=== PATIENT | male | born 1940 | race Caucasian/White ===

== ENCOUNTER → 2018-01-11 | Day surgery (SDC) | payer OTHER, MEDICARE ==
[~2018-01-11] MED LIST: PROPOFOL 20 ML ONE
[2018-01-11 11:10] VITALS: TEMP 97.6; BMI 27.4
[2018-01-11 12:03] VITALS: BP 112/60; PULSE 58
--- NOTE | 2018-01-13 12:05 | PATH ---
Surgical Pathology Report Patient Name: COCO NOVAK [facility]. Rec. #: [id number] /Age/Gender: 1940 (Age: 77) / M Account: [id number] Location: [facility]-ENDOSCOPY Taken: 01/11/2018 Received: 01/11/2018 Reported: 01/13/2018 Physicians: Arelis Dickinson M.D. Specimen(s) Received A: BX ANTRUM B: BX GE JUNCTION Clinical History Dyspepsia Rule out reflux Final Diagnosis A. STOMACH, ANTRUM, BIOPSY: GASTRIC ANTRAL MUCOSA WITH MILD CHRONIC GASTRITIS. IMMUNOHISTOCHEMICAL STAIN FOR H. PYLORI IS NEGATIVE. B. GASTROESOPHAGEAL (GE) JUNCTION, BIOPSY: GASTRIC CARDIAC TYPE MUCOSA WITH MILD CHRONIC GASTRITIS. NO INTESTINAL METAPLASIA, DYSPLASIA, OR SQUAMOUS MUCOSA IDENTIFIED. Electronically Signed Arelis Ferreira M.D. Gross Description A. Received in formalin, labeled "BX antrum" is a lin, irregular portion of soft tissue measuring 0.2 cm. in greatest dimension. The specimen is submitted in toto in one cassette. B. Received in formalin, labeled "BX GE junction" is a lin, irregular portion of soft tissue measuring 0.2 cm. in greatest dimension. The specimen is submitted in toto in one cassette. CAIN/01/12/2018 dmitry/01/12/2018
== END | disposition home or self-care (01) ==
LOC: FASU-ENDO 10:33
PROVIDERS: ATTEND Internal Medicine Gastroenterology
PROC: 0DB68ZX Excision of Stomach, Via Natural or Artificial Opening Endoscopic, Diagnostic (ICD-10-PCS; 2018-01-11)
PROC: 0DB58ZX Excision of Esophagus, Via Natural or Artificial Opening Endoscopic, Diagnostic (ICD-10-PCS; principal; 2018-01-11 11:45)
DX: K29.50 Unspecified chronic gastritis without bleeding (principal); R13.10 Dysphagia, unspecified
CPT/HCPCS: 88305-TC; 88342-TC

== ENCOUNTER 2019-04-09 01:03 | Emergency (ER) | payer OTHER, MEDICARE ==
[2019-04-09 01:21] VITALS: BP 155/71; PULSE 66; TEMP 97.7; BMI 28.5
--- NOTE | 2019-04-09 04:09 | PDOC ---
History of Present Illness - General Chief Complaint: Pain Stated Complaint: ABD PAIN Time Seen by Provider: 04/09/19 03:58 History Source: Patient Exam Limitations: No Limitations - History of Present Illness Initial Comments: 04/09/19 04:00 78YOM with h/o ruptured intestine with resection and colostomy followed by colostomy reversal, hernia repair x3, chronic back pain s/p multiple surgeries w / Dr. Sahni, HTN, and HLD, who p/w abdominal pain and one episode NBNB vomiting this afternoon. He describes about 6 hours of umbilical pain late this afternoon /evening accompanied by abdominal swelling in the same area. He had one episode of brown vomit this evening after he drank similarly-colored tea. His last BM was yesterday morning and was normal. He denies any f/c, burning on urination, testicular pain/swelling, or other symptoms. Past History - Past Medical History Allergies/Adverse Reactions: Allergies Allergy/AdvReac Type Severity Reaction Status Date / Time oxycodone AdvReac Severe Nausea Verified 04/09/19 01:20 Home Medications: Ambulatory Orders Amiloride HCl [Midamor] 10 mg PO DAILY 07/15/12 Ascorbic Acid [Vitamin C Oral Solution -] 500 mg PO DAILY 07/15/12 Atorvastatin Ca [Lipitor] 10 mg PO DAILY 07/15/12 Cholecalciferol (Vitamin D3) [Vitamin D3] 2,000 unit PO DAILY 07/15/12 Zolpidem Tartrate [Ambien] 10 mg PO HS 07/15/12 hydrALAZINE HCL [Apresoline] 50 mg PO TID 07/15/12 Brimonidine Tartrate/Timolol [Combigan 0.2%-0.5% Eye Drops] 1 drop OS BID Doxazosin Mesylate [Cardura -] 2 mg PO BID 12/30/14 Allopurinol [Zyloprim -] 100 mg PO DAILY 02/16/16 Pantoprazole Sodium [Protonix] 40 mg PO DAILY 02/16/16 Nebivolol [Bystolic -] 30 mg PO HS 03/01/16 Aspirin [ASA -] 81 mg PO DAILY #0 tab.chew 05/24/16 Olmesartan/Hydrochlorothiazide [Benicar Hct 40-25 mg Tablet] 1 each PO DAILY 06/01 Anemia: No Asthma: No Cancer: No Cardiac Disorders: No CVA: No COPD: No CHF: No Dementia: No Diabetes: No GI Disorders: Yes (DIVERTICLOSIS;ULCERS;GASTROPATHY;HEMORROIDS;H/H;GRADE I VARICES) Disorders: No HTN: Yes Hypercholesterolemia: Yes Liver Disease: No Seizures: No Thyroid Disease: No - Surgical History Abdominal Surgery: Yes Appendectomy: No Cardiac Surgery: No Cholecystectomy: No Lung Surgery: No Neurologic Surgery: Yes (HERNIATED L4-5, SPINAL COLUMN STENOSIS) Orthopedic Surgery: Yes (ARTHROSCOPIC SURGERY;BACK/NECK SURGERY) - Suicide/Smoking/Psychosocial Hx Smoking Status: No Smoking History: Never smoked Have you smoked in the past 12 months: No Number of Cigarettes Smoked Daily: 0 If you are a former smoker, when did you quit?: 1980 Hx Alcohol Use: Yes ([facility]) Drug/Substance Use Hx: No Substance Use Type: None Hx Substance Use Treatment: No Review of Systems - Review of Systems Able to Perform ROS?: Yes Comments:: 04/09/19 04:53 GEN: no fever, chills, malaise, generalized weakness, or weight change HEENT: no ear pain, sore throat, vision change, or eye pain CV: no chest pain, palpitations, lightheadedness, syncope, or edema RESP: no cough, wheezing, or SOB GI: abdominal pain, nausea, vomiting, no diarrhea, constipation, or white/black/ bloody stool : no dysuria, hematuria, incontinence, retention, bleeding, or discharge MSK: no neck/back pain, muscle weakness/pain, or joint swelling/pain NEURO: no headache, seizure, vertigo, numbness, tingling, or focal weakness PSYCH: no substance use, no behavior change SKIN: no jaundice, no rash ROS otherwise negative except as noted in HPI *Physical Exam - Vital Signs Last Vital Signs Temp Pulse Resp BP Pulse Ox 97.7 F 66 18 155/71 98 04/09/19 01:17 04/09/19 01:17 04/09/19 01:17 04/09/19 01:17 04/09/19 01:17 - Physical Exam Comments: 04/09/19 04:56 GENERAL: very pleasant older adult male, nontoxic and well-appearing, A/Ox4, no distress, answers questions appropriately, accompanied by to appears supportive HEENT: PERRLA, EOMI, moist mucous membranes NECK/BACK: no midline ttp, no spinal stepoff or deformity, no hematoma, full ROM , neck supple CARDIOVASCULAR: regular rate/rhythm, normal S1S2, no MGR, strong peripheral pulses, capillary refill <2 seconds, extremities wwp, no edema LUNGS/RESPIRATORY: no respiratory distress, CTAB GI/ABDOMEN: multiple scars from prior surgeries, symmetric [id number], normoactive BS, soft, no ttp, no midline pulsatile masses : no CVA tenderness EXTREMITIES: no muscle atrophy, no acute deformity SKIN: warm and dry, no pallor, no jaundice, no rash, no bruising, no skin breakdown, no cuts, no lesions NEUROLOGICAL: GCS 15, CN II-XII grossly intact, 5/5 strength proximally and distally, no facial droop ED Treatment Course - LABORATORY CBC & Chemistry Diagram: 04/09/19 04:30 04/09/19 04:30 Medical Decision Making - Medical Decision Making 04/09/19 04:58 78YOM with multiple prior abdominal surgeries p/w Initial Vital Signs Temp Pulse Resp BP Pulse Ox 97.7 F 66 18 155/71 98 04/09/19 01:17 04/09/19 01:17 04/09/19 01:17 04/09/19 01:17 04/09/19 01:17 Exam: As noted in Physical Exam section. DDX IBNLT: most likely gastroenteritis given time course with picnic food and spontaneous resolution, also considered on ddx are AAA, renal colic, PUD, SBO, sigmoid volvulus, splenomegaly (2/2 mets, myeloplastic syndrome, or lymphoproliferative d/o MC in elderly being CML or NHL), etc. W/U ordered: labs as noted below TX ordered: None at this time. EKG: Reviewed; results as noted in ECG Review section. Laboratory Tests 04/09/19 04/09/19 04/09/19 04:30 04:30 04:30 WBC 12.1 H RBC 3.82 L Hgb 12.1 Hct 35.4 MCV 92.6 MCH 31.6 MCHC 34.1 RDW 12.7 Plt Count 242 MPV 8.9 Absolute Neuts (auto) 10.0 H Neutrophils % 82.9 H D Lymphocytes % 11.7 D Monocytes % 4.0 Eosinophils % 1.1 Basophils % 0.3 Nucleated RBC % 0 Sodium 134 L Potassium 3.8 Chloride 100 Carbon Dioxide 26 Anion Gap 9 BUN 22.0 H Creatinine 1.2 Est GFR (CKD-EPI)AfAm 67.67 Est GFR (CKD-EPI)NonAf 58.39 Random Glucose 108 H Lactic Acid 1.0 Calcium 8.5 Total Bilirubin 0.5 AST 18 ALT 20 Alkaline Phosphatase 93 Troponin I Total Protein 7.2 Albumin 3.6 Lipase 171 Urine Color Urine Appearance Urine pH Ur Specific [place] Urine Protein Urine Glucose (UA) Urine Ketones Urine Blood Urine Nitrite Urine Bilirubin Urine Urobilinogen Ur Leukocyte Esterase 04/09/19 04/09/19 04/09/19 04:30 04:30 04:45 WBC RBC Hgb Hct MCV MCH MCHC RDW Plt Count MPV Absolute Neuts (auto) Neutrophils % Lymphocytes % Monocytes % Eosinophils % Basophils % Nucleated RBC % Sodium Potassium Chloride Carbon Dioxide Anion Gap BUN Creatinine Est GFR (CKD-EPI)AfAm Est GFR (CKD-EPI)NonAf Random Glucose Lactic Acid Calcium Total Bilirubin AST ALT Alkaline Phosphatase Troponin I 0.03 Total Protein Albumin Lipase Cancelled Urine Color Yellow Urine Appearance Clear Urine pH 6.0 Ur Specific [place] 1.012 Urine Protein Negative Urine Glucose (UA) Negative Urine Ketones Negative Urine Blood Negative Urine Nitrite Negative Urine Bilirubin Negative Urine Urobilinogen 0.2 Ur Leukocyte Esterase Negative Reassessment: Patient states he continues to be pain-free. Repeat abdominal exam continues to be benign. No midline pulsatile mass, no nausea or vomiting in the ED. 04/09/19 05:56 This patient has gotten significant relief of symptoms while in the ED. Workup is not concerning for emergency-level pathology at this time. This patient is appropriate for discharge with close outpatient follow up. They are comfortable with this plan and will follow up with their primary care provider in 1-3 days. Specific return precautions are discussed and they will come back to the ER if necessary. *DC/Admit/Observation/Transfer Diagnosis at time of Disposition: Vomiting Qualifiers: Vomiting type: unspecified Vomiting Intractability: non-intractable Nausea presence: with nausea Qualified Code(s): R11.2 - Nausea with vomiting, unspecified Abdominal pain Qualifiers: Abdominal location: periumbilical Qualified Code(s): R10.33 - Periumbilical pain - Discharge Dispostion Disposition: HOME Condition at time of disposition: Stable Decision to Admit order: No - Referrals Referrals: Isma Puckett MD [Primary Care Provider] - - Patient Instructions Printed Discharge Instructions: DI for Abdominal Pain-Adult Additional Instructions: You were seen in the ER for abdominal pain. We did an exam and labs, and there were no concerning findings. Your white blood cell count was slightly elevated, and many things could have caused this including the pain and the vomiting. After our assessment, we do not believe you are having a medical emergency at this time, and we believe you are safe to go home. Please follow up with your regular PCP in 1-3 days. Call their clinic this morning, tell them you were seen in the ER, and tell them you need a follow-up ARIELLE. If you have any new or worsening symptoms, please come back to the ER at any time (24 hours a day). Especially come back if you have recurrent abdominal pain, abdominal distention , more episodes of vomiting, fever, inability to have a bowel movement or pass gas, chest pain, shortness of breath, or any other new emergency symptoms. If you are having severe or life threatening symptoms, or symptoms that make it unsafe to drive or have someone drive you, please call 911. - Post Discharge Activity
[2019-04-09 04:52] LABS: BASO % 0.3 % (0-2.0); EOS % 1.1 % (0-4.5); HEMATOCRIT 35.4 % (35.4-49); HEMOGLOBIN 12.1 GM/dL (11.7-16.9); LYMPH % 11.7 % (8-40); MCH 31.6 pg (25.7-33.7); MCHC 34.1 g/dl (32.0-35.9); MEAN CELL VOLUME 92.6 fl (80-96); MEAN PLT VOLUME 8.9 fl (7.5-11.1); NEUT % 82.9 % (42.8-82.8); PLATELET COUNT 242 K/MM3 (134-434); RBC 3.82 M/mm3 (4.00-5.60); RDW 12.7 % (11.9-15.9); WHITE BLOOD COUNT 12.1 K/mm3 (4.0-10.0)
--- NOTE | 2019-04-09 04:54 | PDOC ---
Attending Attestation - Resident Resident Name: Aide Guy - ED Attending Attestation I have performed the following: I have examined & evaluated the patient, The case was reviewed & discussed with the resident, I agree w/resident's findings & plan - HPI HPI: 04/09/19 06:06 Pt comes with abd pain after a picnic. Probably food poisoning. He has extensive abdominal surgical hx. We need to consider whether pt has SBO due to adhesions. However, pt states that he feels vastly impoved after coming to the ER. - Physicial Exam PE: 04/09/19 06:20 Agree with resident exam - Medical Decision Making 04/09/19 06:21 Pt will be sent home, as he feels well and labs are normal.
[2019-04-09 05:12] LABS: URINE APPEARANCE CLEAR; URINE BILIRUBIN NEGATIVE (NEGATIVE); URINE COLOR YELLOW; URINE GLUCOSE (UA) NEGATIVE (NEGATIVE); URINE KETONE NEGATIVE (NEGATIVE); URINE LEUK ESTERASE NEGATIVE (NEGATIVE); URINE NITRITE NEGATIVE (NEGATIVE); URINE PROTEIN NEGATIVE (NEGATIVE); URINE UROBILINOGEN 0.2 mg/dL (0.2-1.0)
[2019-04-09 05:25] LABS: ALBUMIN 3.6 g/dl (3.4-5.0); BILIRUBIN,TOTAL 0.5 mg/dL (0.2-1); CALCIUM 8.5 mg/dL (8.5-10.1); CREATININE 1.2 mg/dL (0.55-1.3); POTASSIUM 3.8 mmol/L (3.5-5.1); TOT PROT 7.2 g/dl (6.4-8.2)
== END 2019-04-09 06:00 | disposition home or self-care (01) ==
LOC: JER 01:03
DX: R10.9 Unspecified abdominal pain (principal); R11.2 Nausea with vomiting, unspecified; I10 Essential (primary) hypertension; E78.00 Pure hypercholesterolemia, unspecified; Z87.19 Personal history of other diseases of the digestive system
CPT/HCPCS: 80053; 81003; 83605; 83690; 84484; 85025; 87086; 99282-25

== ENCOUNTER 2019-04-11 21:08 | Emergency (ER) | payer OTHER, MEDICARE ==
[2019-04-11 21:13] VITALS: BMI 28.5
--- NOTE | 2019-04-11 21:13 | PDOC ---
Rapid Medical Evaluation Time Seen by Provider: 04/11/19 21:09 Medical Evaluation: Allergies Allergy/AdvReac Type Severity Reaction Status Date / Time oxycodone AdvReac Severe Nausea Verified 04/09/19 01:20 04/11/19 21:10 HPI: Abdominal pain 4 days history of colectomy PE: L sided UQ and LQ tenderness CT ORDERS: Belly labs Discharge Disposition - Diagnosis Abdominal pain - Referrals - Patient Instructions - Post Discharge Activity
[2019-04-11] MEDS ORDERED: SODIUM CHLORIDE 1,000 ML IV STA (22:39)
[2019-04-11] MEDS ORDERED: ACETAMINOPHEN 1000 MG/100 ML VIAL (NON FORMULARY) IVPB ONE (22:39)
--- NOTE | 2019-04-11 22:40 | PDOC ---
History of Present Illness - General Chief Complaint: Pain Stated Complaint: ABD PAIN Time Seen by Provider: 04/11/19 21:09 History Source: Patient Exam Limitations: No Limitations - History of Present Illness Initial Comments: Isma Altman is a 78 yo gentleman with a hx of a ruptured intestine with resection and colostomy followed by colostomy reversal, hernia repair x3, chronic back pain s/p multiple surgeries w/ Dr. Sahni, HTN, and HLD, who presents to the [facility] ER via private auto for generalized abdominal pain. He states he was seen here in the same ER for similar abdominal pain this past tuesday, had some labs performed and then got sent home for PCP follow up. The patient states he has a sharp and burning pain in the lower left side of his abdomen which has been present, constant and nagging for the past 4 days. The patient denies any recent nausea, vomiting, diarrhea or constipation. His last bowel movement was this morning and it was normal without any diarrhea or constipation. The patient has an implanted device in his back for chronic pain. He states no pills work for him to relieve his chronic pain. PCP: Isma Puckett GI: Dr. Dickinson PSH: Colectomy, hernia repair, multiple back surgeries Social Hx: Drinks relationally, denies smoking or other substance usage. Allergies: Oxycodone Past History - Past Medical History Allergies/Adverse Reactions: Allergies Allergy/AdvReac Type Severity Reaction Status Date / Time oxycodone AdvReac Severe Nausea Verified 04/11/19 21:13 Home Medications: Ambulatory Orders Amiloride HCl [Midamor] 10 mg PO DAILY 07/15/12 Ascorbic Acid [Vitamin C Oral Solution -] 500 mg PO DAILY 07/15/12 Atorvastatin Ca [Lipitor] 10 mg PO DAILY 07/15/12 Cholecalciferol (Vitamin D3) [Vitamin D3] 2,000 unit PO DAILY 07/15/12 Zolpidem Tartrate [Ambien] 10 mg PO HS 07/15/12 hydrALAZINE HCL [Apresoline] 50 mg PO TID 07/15/12 Brimonidine Tartrate/Timolol [Combigan 0.2%-0.5% Eye Drops] 1 drop OS BID Doxazosin Mesylate [Cardura -] 2 mg PO BID 12/30/14 Allopurinol [Zyloprim -] 100 mg PO DAILY 02/16/16 Nebivolol [Bystolic -] 30 mg PO HS 03/01/16 Aspirin [ASA -] 81 mg PO DAILY #0 tab.chew 05/24/16 Olmesartan/Hydrochlorothiazide [Benicar Hct 40-25 mg Tablet] 1 each PO DAILY 06/01 Dorzolamide HCl/Timolol Maleat [Cosopt Eye Drops] 0 ml OP BID 04/11/19 Omeprazole 20 mg PO DAILY 04/11/19 Anemia: No Asthma: No Cancer: No Cardiac Disorders: No CVA: No COPD: No CHF: No Dementia: No Diabetes: No GI Disorders: Yes (DIVERTICLOSIS;ULCERS;GASTROPATHY;HEMORROIDS;H/H;GRADE I VARICES) Disorders: No HTN: Yes Hypercholesterolemia: Yes Liver Disease: No Seizures: No Thyroid Disease: No - Surgical History Abdominal Surgery: Yes (COLON RESECTION-RUPTURED LARGE INTESTINE) Appendectomy: No Cardiac Surgery: No Cholecystectomy: No Lung Surgery: No Neurologic Surgery: Yes (HERNIATED L4-5, SPINAL COLUMN STENOSIS) Orthopedic Surgery: Yes (ARTHROSCOPIC SURGERY;BACK/NECK SURGERY) - Suicide/Smoking/Psychosocial Hx Smoking Status: No Smoking History: Never smoked Have you smoked in the past 12 months: No Number of Cigarettes Smoked Daily: 0 If you are a former smoker, when did you quit?: 1980 Hx Alcohol Use: Yes ([facility]) Drug/Substance Use Hx: No Substance Use Type: None Hx Substance Use Treatment: No Review of Systems - Review of Systems Able to Perform ROS?: Yes Comments:: CONSTITUTIONAL: Absent: fever, no chills, no fatigue EYES: Absent: visual changes ENT: Absent: ear pain, no sore throat CARDIOVASCULAR: Absent: chest pain, no palpitations RESPIRATORY: Absent: cough, no SOB GI: Present: Abdominal pain Absent: no nausea, no vomiting, no constipation, no diarrhea GENITOURINARY: Absent: dysuria, no frequency, no hematuria MUSKULOSKELETAL: Present: Back pain Absent: no arthralgia, no myalgia SKIN: Absent: rash NEURO: Absent: headache *Physical Exam - Vital Signs Last Vital Signs Temp Pulse Resp BP Pulse Ox 97.7 F 73 18 126/69 97 04/11/19 21:09 04/11/19 21:09 04/11/19 21:04/11/19 21:04/11/19 21:09 - Physical Exam Comments: GENERAL: Well-appearing, well-nourished. No apparent distress. HEENT: Normocephalic, atraumatic. PERRL, EOM intact. CARDIOVASCULAR: Normal S1, S2. Regular rate and rhythm. PULMONARY: No evidence of respiratory distress. Lungs clear to auscultation bilaterally. No wheezing, rales or rhonchi. ABDOMEN: There is mild LLQ TTP. The abdomen is still soft with normal bowel sounds and is not distended. No rebound or guarding. No organomegaly. EXTREMITIES: Normal ROM in all four extremities. No gross deformities. SKIN: Warm, dry. No rash NEUROLOGICAL: No focal neurological deficits. ED Treatment Course - LABORATORY CBC & Chemistry Diagram: 04/11/19 23:00 04/11/19 23:00 Medical Decision Making - Medical Decision Making Isma Altman is a 78 yo gentleman with a hx of a ruptured intestine with resection and colostomy followed by colostomy reversal, hernia repair x3, chronic back pain s/p multiple surgeries w/ Dr. Sahni, HTN, and HLD, who presents to the [facility] ER via private auto for generalized abdominal pain. He states he was seen here in the same ER for similar abdominal pain this past tuesday, had some labs performed and then got sent home for PCP follow up. The patient states he has a sharp and burning pain in the lower left side of his abdomen which has been present, constant and nagging for the past 4 days. The patient denies any recent nausea, vomiting, diarrhea or constipation. His last bowel movement was this morning and it was normal without any diarrhea or constipation. The patient has an implanted device in his back for chronic pain. He states no pills work for him to relieve his chronic pain. Vital Signs Temp Pulse Resp BP Pulse Ox 97.7 F 73 18 126/69 97 04/11/19 21:04/11/19 21:04/11/19 21:04/11/19 21:04/11/19 21:09 DDx IBNLT: diverticulitis, colitis, renal colic, uti/pylo, electrolyte/ metabolic disturbance Plan: Labs, urine, EKG, CTAP, analgesia, re-assess. CTAP: IMPRESSION: Inflamed loop of lower abdominal small bowel could be due to infection, Crohn's disease or bowel ischemia , without secondary complication. Moderate-sized hiatal hernia. Mild prostate enlargement. Trace bilateral pleural effusions. 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 Patient looks very well and is non-toxic appearing. He was seen for this pain 2 days prior and he states it is better today then it was then. Patient requests to be discharged and states he has an appointment with his GI doctor - Dr. Dickinson on tuesday and another appointment with his PCP - dr. Puckett on Tuesday. Will DC patient with GI and PCP fu. *DC/Admit/Observation/Transfer Diagnosis at time of Disposition: Abdominal pain - Discharge Dispostion Disposition: HOME Condition at time of disposition: Improved Decision to Admit order: No - Referrals Referrals: Isma Puckett MD [Primary Care Provider] - Arelis Dickinson DO [Staff Physician] - - Patient Instructions Printed Discharge Instructions: DI for Abdominal Pain-Adult Additional Instructions: You came into the Er with abdominal pain. We did a cat scan which showed you have not ruptured your intestine. 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 Come back to the ER immediately if your pain worsens or you have any other new or worsening concerns. thank you for coming to the [facility] ER. We hope you feel better soon! Print Language: NIUEAN - Post Discharge Activity
[2019-04-11] MEDS ORDERED: ACETAMINOPHEN INJECTION 100 ML IVPB ONE (22:44)
[2019-04-11 23:14] LABS: BASO % 0.5 % (0-2.0); EOS % 3.6 % (0-4.5); HEMATOCRIT 34.2 % (35.4-49); HEMOGLOBIN 11.6 GM/dL (11.7-16.9); LYMPH % 23.7 % (8-40); MCH 31.5 pg (25.7-33.7); MCHC 33.9 g/dl (32.0-35.9); MEAN CELL VOLUME 92.8 fl (80-96); MEAN PLT VOLUME 8.3 fl (7.5-11.1); MONO % 8.3 % (3.8-10.2); NEUT % 63.9 % (42.8-82.8); PLATELET COUNT 251 K/MM3 (134-434); RBC 3.69 M/mm3 (4.00-5.60); RDW 12.7 % (11.9-15.9); WHITE BLOOD COUNT 9.4 K/mm3 (4.0-10.0)
[2019-04-11 23:20] LABS: URINE APPEARANCE CLEAR; URINE BILIRUBIN NEGATIVE (NEGATIVE); URINE COLOR YELLOW; URINE GLUCOSE (UA) NEGATIVE (NEGATIVE); URINE KETONE NEGATIVE (NEGATIVE); URINE LEUK ESTERASE NEGATIVE (NEGATIVE); URINE NITRITE NEGATIVE (NEGATIVE); URINE PROTEIN NEGATIVE (NEGATIVE); URINE UROBILINOGEN 0.2 mg/dL (0.2-1.0)
[2019-04-11 23:31] LABS: INR 1.08 (0.83-1.09); PROTHROMBIN TIME (PATIENT) 12.8 SEC (9.7-13.0)
[2019-04-11 23:41] LABS: ALBUMIN 3.4 g/dl (3.4-5.0); BILIRUBIN,TOTAL 0.5 mg/dL (0.2-1); BLOOD UREA NITROGEN 26.1 mg/dL (7-18); CALCIUM 8.6 mg/dL (8.5-10.1); CREATININE 1.5 mg/dL (0.55-1.3); POTASSIUM 3.6 mmol/L (3.5-5.1); TOT PROT 6.7 g/dl (6.4-8.2)
[2019-04-12 00:09] LABS: PHOSPHOROUS 3.9 mg/dL (2.5-4.9)
--- NOTE | 2019-04-12 01:47 | PDOC ---
Documentation entered by Chuy Arce SCRIBE, acting as scribe for Kati Villanueva DO. Kati Villanueva DO: This documentation has been prepared by the keke, Chuy Arce SCRIBE, under my direction and personally reviewed by me in its entirety. I confirm that the documentation accurately reflects all work, treatment, procedures, and medical decision making performed by me. Attending Attestation - Resident Resident Name: Sergio Bojorquez - ED Attending Attestation I have performed the following: I have examined & evaluated the patient, The case was reviewed & discussed with the resident, I agree w/resident's findings & plan - HPI HPI: 04/11/19 23:23 The patient is a 78 year old male, with a significant PMH of HTN, HLD, ruptured intestine with resection and colostomy, hernia repair x3, and chronic back pain (s/p multiple surgeries) who presents to the emergency department with 4 days of generalized abdominal pain. The patient was seen here at [facility] 2 days ago for similar symptoms, labs were normal so the patient was discharged. The patient states his pain is constant, sharp and has not subsided which prompted his arrival to the ED today. The patient states he endorsed one episode of NBNB vomiting and his last normal bowel movement was this morning. The patient denies history of kidney stones, chest pain, shortness of breath, headache and dizziness. Denies fever, chills, nausea, diarrhea and constipation. Denies dysuria, frequency, urgency and hematuria. Allergies: oxycodone Past surgical history: Colectomy, hernia repair, spinal column stenosis, arthroscopic surgery Social history: occasional alcohol use. PCP: Isma Martinez - Physicial Exam PE: 04/11/19 23:24 Agree with resident exam. - Medical Decision Making 04/12/19 01:45 78-year-old male with left-sided abdominal pain for several days CT scan of the abdomen and pelvis shows inflamed loop of small bowel possibly due to infection versus inflammatory bowel disease Bowel ischemia less likely as patient is non-ill appearing no elevated white blood cell count, no fever and a normal lactic acid level Patient already has an appointment with his Neurologist and Primary Care Physician When She Has Agreed to Follow-Up with Patient Advised to Return Should His Condition Worsen in Any Way Such
[2019-04-12 02:22] VITALS: BP 140/71; PULSE 53; TEMP 97.4
--- NOTE | 2019-04-12 13:38 | EKG ---
Test Reason : Blood Pressure : / mmHG Vent. Rate : 054 BPM Atrial Rate : 054 BPM P-R Int : 234 ms QRS Dur : 116 ms QT Int : 512 ms P-R-T Axes : 007 -17 -04 degrees QTc Int : 485 ms POOR DATA QUALITY, INTERPRETATION MAY BE ADVERSELY AFFECTED SINUS BRADYCARDIA WITH 1ST DEGREE A-V BLOCK SEPTAL INFARCT , AGE UNDETERMINED ABNORMAL ECG WHEN COMPARED WITH ECG OF 31-DEC-2014 05:28, SEPTAL INFARCT IS NOW PRESENT Confirmed by GABRIEL YARBROUGH MD ([id number]) on 04/12/2019 1:38:13 PM Referred By: Confirmed By:GABRIEL YARBROUGH MD
== END 2019-04-12 02:23 | disposition home or self-care (01) ==
LOC: JER 21:08
PROC: 3E033NZ Introduction of Analgesics, Hypnotics, Sedatives into Peripheral Vein, Percutaneous Approach (ICD-10-PCS; principal; 2019-04-11)
DX: R10.9 Unspecified abdominal pain (principal); I10 Essential (primary) hypertension; E78.5 Hyperlipidemia, unspecified; K44.9 Diaphragmatic hernia without obstruction or gangrene; N40.0 Benign prostatic hyperplasia without lower urinary tract symptoms; Z87.19 Personal history of other diseases of the digestive system; Z90.49 Acquired absence of other specified parts of digestive tract; Z96.89 Presence of other specified functional implants
CPT/HCPCS: 36415; 74177-TC; 80053; 81003; 82550; 83605; 83690; 83735; 84100; 84484; 85025; 85610; 86850; 86900; 86901; 93005; 93010; 99284-25; J0131; J7030

== ENCOUNTER 2019-09-19 09:10 | Day surgery (SDC) | payer OTHER, MEDICARE ==
[2019-09-11 17:14] VITALS: BMI 27.8
[2019-09-19] MEDS ORDERED: PROPOFOL 20 ML ONE ×2 (09:23)
[2019-09-19 09:50] VITALS: TEMP 97.5
[2019-09-19 11:16] VITALS: BP 105/76; PULSE 61
--- NOTE | 2019-09-21 15:44 | PATH ---
Surgical Pathology Report Patient Name: COCO NOVAK [facility]. Rec. #: [id number] /Age/Gender: 1940 (Age: 79) / M Account: [id number] Location: [facility] Taken: 09/19/2019 Received: 09/19/2019 Reported: 09/21/2019 Physicians: Arelis Dickinson M.D. Specimen(s) Received A: RANDOM SMALL BOWEL B: POLYP DESCENDING COLON Clinical History Surveillance colonoscopy Postoperative diagnosis: Diverticulosis, colon polyps, hemorrhoids, post surgical anatomy Final Diagnosis A. SMALL BOWEL, RANDOM, BIOPSY: COLONIC MUCOSA WITHOUT SIGNIFICANT PATHOLOGIC FINDINGS. NO SMALL BOWEL MUCOSA IDENTIFIED. B. DESCENDING COLON, POLYP, BIOPSY: TUBULAR ADENOMA. Electronically Signed Arelis Ferreira M.D. Gross Description A. Received in formalin, labeled "biopsy random small bowel" is a lin, irregular portion of soft tissue measuring 0.6 cm. in greatest dimension. The specimen is submitted in toto in one cassette. B. Received in formalin, labeled "biopsy polyp descending colon" is a lin, irregular portion of soft tissue measuring 0.6 cm. in greatest dimension. The specimen is submitted in toto in one cassette. 09/20/2019 saudi09/20/2019
== END 2019-09-19 11:15 | disposition home or self-care (01) ==
LOC: FASU-ENDO 09:10
PROVIDERS: ATTEND Internal Medicine Gastroenterology
PROC: 0DBM8ZX Excision of Descending Colon, Via Natural or Artificial Opening Endoscopic, Diagnostic (ICD-10-PCS; 2019-09-19)
PROC: 0DJD8ZZ Inspection of Lower Intestinal Tract, Via Natural or Artificial Opening Endoscopic (ICD-10-PCS; principal; 2019-09-19 10:30)
DX: Z12.11 Encounter for screening for malignant neoplasm of colon (principal); Z86.010 Personal history of colon polyps; K57.30 Diverticulosis of large intestine without perforation or abscess without bleeding; D12.4 Benign neoplasm of descending colon; K64.2 Third degree hemorrhoids; K64.8 Other hemorrhoids
CPT/HCPCS: 88305-TC

== ENCOUNTER 2021-04-17 05:09 | Day surgery (SDC) | payer OTHER, MEDICARE ==
[2021-04-15 13:35] VITALS: BMI 27.0
[2021-04-17] MEDS ORDERED: BUPIVACAINE HCL/PF 0.75% 10 ML VIAL ONE ×2 (07:27→10:28)
[2021-04-17] MEDS ORDERED: LIDOCAINE HCL 1% PRESERVATIVE FREE - 30ML VIAL IJ ONE ×2 (10:56)
[2021-04-17] MEDS ORDERED: IOHEXOL 180 MG/1 ML ML IJ ONE ×3 (10:57→11:01)
[2021-04-17] MEDS ORDERED: BUPIVACAINE HCL/PF 0.75% 10 ML VIAL NR ONE (10:58)
[2021-04-17 11:26] VITALS: TEMP 97.8
[2021-04-17 12:14] VITALS: BP 150/80; PULSE 60
== END 2021-04-17 12:10 | disposition home or self-care (01) ==
LOC: JASU-SURG 05:09
PROVIDERS: ATTEND Pain Medicine Pain Medicine
PROC: 3E0T33Z Introduction of Anti-inflammatory into Peripheral Nerves and Plexi, Percutaneous Approach (ICD-10-PCS; 2021-04-17)
PROC: 3E0T3BZ Introduction of Anesthetic Agent into Peripheral Nerves and Plexi, Percutaneous Approach (ICD-10-PCS; principal; 2021-04-17 10:30)
DX: M47.816 Spondylosis without myelopathy or radiculopathy, lumbar region (principal)
CPT/HCPCS: 76000-TC-FY

== ENCOUNTER 2022-03-06 03:35 | Inpatient (IN) | payer OTHER, MEDICARE ==
[2022-03-06] MEDS ORDERED: LACTATED RINGERS SOLUTION 1000 ML INFUS.BAG IV ONE (04:30)
[2022-03-06] MEDS ORDERED: ACETAMINOPHEN 1000 MG/100 ML BAG IVPB ONE (04:30)
[2022-03-06] MEDS ORDERED: ACETAMINOPHEN INJECTION 100 ML IVPB ONE (04:51)
[2022-03-06 05:30] LABS: BASO % 0.6 % (0-2.0); EOS % 0.6 % (0-4.5); HEMATOCRIT 34.1 % (35.4-49); HEMOGLOBIN 11.2 GM/dL (11.7-16.9); LYMPH % 9.3 % (8-40); MCH 30.9 pg (25.7-33.7); MEAN CELL VOLUME 93.8 fl (80-96); MONO % 2.7 % (3.8-10.2); NEUT % 86.8 % (42.8-82.8); PLATELET COUNT 202 10^3/uL (134-434); RBC 3.63 M/mm3 (4.00-5.60); RDW 13.2 % (11.9-15.9); WHITE BLOOD COUNT 12.1 K/mm3 (4.0-10.0)
[2022-03-06 05:49] LABS: CALCIUM 8.8 mg/dL (8.5-10.1)
[2022-03-06 05:50] LABS: ALBUMIN 3.7 g/dl (3.4-5.0); BLOOD UREA NITROGEN 24.6 mg/dL (7-18)
[2022-03-06 05:52] LABS: CREATININE 1.2 mg/dL (0.55-1.3)
[2022-03-06 05:54] LABS: BILIRUBIN,TOTAL 0.6 mg/dL (0.2-1); TOT PROT 7.3 g/dl (6.4-8.2)
[2022-03-06] MEDS ORDERED: ONDANSETRON 4 MG/2 ML VIAL IVPUSH ONE (07:57)
[2022-03-06] MEDS ORDERED: ONDANSETRON 4 MG/2 ML VIAL ONE (08:05)
[2022-03-06 09:05] LABS: MAGNESIUM 2.1 mg/dL (1.8-2.4)
[2022-03-06 12:42] VITALS: BMI 26.7
[2022-03-06] MEDS ORDERED: ACETAMINOPHEN 1000 MG/100 ML BAG IVPB PRN (14:51)
[2022-03-06] MEDS: ONDANSETRON 4 MG/2 ML VIAL IVPUSH PRN (15:29)
[2022-03-06] MEDS: DEXTROSE 5%-0.45% SALINE 1,000 ML IV SCH (15:39)
[2022-03-06] MEDS: PANTOPRAZOLE SODIUM 40 MG VIAL IVPUSH SCH (15:39)
[2022-03-06 17:50] LABS: BASO % 0.2 % (0-2.0); HEMOGLOBIN 10.4 GM/dL (11.7-16.9); LYMPH % 6.8 % (8-40); MCH 31.1 pg (25.7-33.7); MCHC 33.5 g/dl (32.0-35.9); MEAN CELL VOLUME 92.7 fl (80-96); MEAN PLT VOLUME 9.9 fl (7.5-11.1); MONO % 5.1 % (3.8-10.2); NEUT % 87.9 % (42.8-82.8); PLATELET COUNT 193 10^3/uL (134-434); RBC 3.35 M/mm3 (4.00-5.60); RDW 13.2 % (11.9-15.9); WHITE BLOOD COUNT 11.8 K/mm3 (4.0-10.0)
[2022-03-06] MEDS ORDERED: LOSARTAN POTASSIUM 50 MG TABLET PO SCH (22:00)
[2022-03-06] MEDS ORDERED: hydrALAZINE HCL 50 MG TABLET (FP) PO SCH ×2 (22:00)
[2022-03-06] MEDS ORDERED: ISOSORBIDE MONONITRATE 30 MG TAB.SR.24H (FP) PO SCH (22:00)
[2022-03-06] MEDS ORDERED: NEBIVOLOL 10 MG TABLET (FP) PO SCH (22:00)
[2022-03-06] MEDS ORDERED: PATIENT'S OWN MEDICATION (NON-FORMULARY) (Dorzolamide Hcl/Timolol Maleat [Cosopt Eye Drops OP SCH (22:00)
[2022-03-06] MEDS ORDERED: PIPERACILLIN/TAZOBACTAM 3.375 GM VIAL IVPB ONE (22:41)
[2022-03-06] MEDS ORDERED: DEXTROSE 5%-WATER - 50 ML IVPB ONE (22:41)
[2022-03-06] MEDS: DOXAZOSIN MESYLATE 4 MG TABLET PO SCH (23:18)
[2022-03-06] MEDS: PIPERACILLIN/TAZOB 3.375 GM 3.375 GM in DEXTROSE 5%-WATER - 50 ML IVPB SCH (23:18)
[2022-03-06] MEDS: TIMOLOL 0.5% OPHTHALMIC SOL 5 ML BOTTLE OS SCH (23:19)
[2022-03-06] MEDS: DORZOLAMIDE 2% HCL OPHTHALMIC SOLUTION 10 ML BOTTLE OS SCH (23:19)
[2022-03-07] MEDS ORDERED: PIPERACILLIN/TAZOBACTAM 3.375 GM VIAL IVPB ONE ×3 (01:32→16:38)
[2022-03-07] MEDS ORDERED: DEXTROSE 5%-WATER - 50 ML IVPB ONE ×3 (01:32→16:39)
[2022-03-07] MEDS: PIPERACILLIN/TAZOB 3.375 GM 3.375 GM in DEXTROSE 5%-WATER - 50 ML IVPB SCH ×3 (01:56→17:05)
[2022-03-07] MEDS: DEXTROSE 5%-0.45% SALINE 1,000 ML IV SCH ×3 (06:04→18:19)
[2022-03-07 08:28] LABS: PH,URINE 5.5 (5.0-8.0); URINE APPEARANCE CLEAR; URINE BILIRUBIN NEGATIVE (NEGATIVE); URINE COLOR YELLOW; URINE GLUCOSE (UA) NEGATIVE (NEGATIVE); URINE KETONE NEGATIVE (NEGATIVE); URINE LEUK ESTERASE NEGATIVE (NEGATIVE); URINE NITRITE NEGATIVE (NEGATIVE); URINE PROTEIN TRACE (NEGATIVE); URINE UROBILINOGEN 0.2 mg/dL (0.2-1.0)
[2022-03-07 08:56] LABS: BASO % 0.1 % (0-2.0); HEMATOCRIT 32.3 % (35.4-49); HEMOGLOBIN 10.6 GM/dL (11.7-16.9); LYMPH % 4.7 % (8-40); MCH 30.9 pg (25.7-33.7); MCHC 32.9 g/dl (32.0-35.9); MEAN CELL VOLUME 93.8 fl (80-96); MEAN PLT VOLUME 10.6 fl (7.5-11.1); MONO % 6.9 % (3.8-10.2); NEUT % 88.3 % (42.8-82.8); PLATELET COUNT 191 10^3/uL (134-434); RBC 3.45 M/mm3 (4.00-5.60); RDW 13.4 % (11.9-15.9); WHITE BLOOD COUNT 15.2 K/mm3 (4.0-10.0)
[2022-03-07 09:21] LABS: CALCIUM 8.7 mg/dL (8.5-10.1)
[2022-03-07 09:22] LABS: BLOOD UREA NITROGEN 29.6 mg/dL (7-18)
[2022-03-07 09:25] LABS: CREATININE 1.2 mg/dL (0.55-1.3)
[2022-03-07 09:27] LABS: TOT PROT 5.8 g/dl (6.4-8.2)
[2022-03-07 09:34] LABS: ALBUMIN 2.9 g/dl (3.4-5.0)
[2022-03-07] MEDS ORDERED: FUROSEMIDE 40 MG TABLET (FP) PO SCH (10:00)
[2022-03-07] MEDS: PANTOPRAZOLE SODIUM 40 MG VIAL IVPUSH SCH (10:05)
[2022-03-07] MEDS: ALLOPURINOL 100 MG TABLET (FP) PO SCH (10:06)
[2022-03-07] MEDS: TIMOLOL 0.5% OPHTHALMIC SOL 5 ML BOTTLE OS SCH ×2 (10:10→22:39)
[2022-03-07] MEDS: DORZOLAMIDE 2% HCL OPHTHALMIC SOLUTION 10 ML BOTTLE OS SCH ×2 (10:10→22:39)
[2022-03-07 13:56] LABS: BASO % 0.1 % (0-2.0); EOS % 0.1 % (0-4.5); HEMATOCRIT 32.9 % (35.4-49); LYMPH % 4.2 % (8-40); MCH 31.1 pg (25.7-33.7); MCHC 33.3 g/dl (32.0-35.9); MEAN CELL VOLUME 93.3 fl (80-96); MEAN PLT VOLUME 9.9 fl (7.5-11.1); MONO % 7.5 % (3.8-10.2); NEUT % 88.1 % (42.8-82.8); PLATELET COUNT 189 10^3/uL (134-434); RBC 3.52 M/mm3 (4.00-5.60); RDW 13.2 % (11.9-15.9); WHITE BLOOD COUNT 15.9 K/mm3 (4.0-10.0)
[2022-03-07 14:19] LABS: LACTIC ACID 2.2 mmol/L (0.4-2.0)
[2022-03-07] MEDS: DOXAZOSIN MESYLATE 4 MG TABLET PO SCH (22:39)
[2022-03-07] MEDS: ATORVASTATIN CA 10 MG TABLET (FP) PO SCH (22:39)
[2022-03-08] MEDS ORDERED: DEXTROSE 5%-WATER - 50 ML IVPB ONE ×3 (01:03→18:52)
[2022-03-08] MEDS ORDERED: PIPERACILLIN/TAZOBACTAM 3.375 GM VIAL IVPB ONE ×3 (01:03→18:52)
[2022-03-08] MEDS: PIPERACILLIN/TAZOB 3.375 GM 3.375 GM in DEXTROSE 5%-WATER - 50 ML IVPB SCH ×3 (01:34→18:54)
[2022-03-08] MEDS: DEXTROSE 5%-0.45% SALINE 1,000 ML IV SCH ×4 (02:42→22:12)
[2022-03-08 09:29] LABS: BASO % 0.3 % (0-2.0); EOS % 0.2 % (0-4.5); HEMOGLOBIN 10.5 GM/dL (11.7-16.9); MCH 31.7 pg (25.7-33.7); MEAN PLT VOLUME 9.8 fl (7.5-11.1); MONO % 8.2 % (3.8-10.2); NEUT % 85.3 % (42.8-82.8); PLATELET COUNT 167 10^3/uL (134-434); RBC 3.33 M/mm3 (4.00-5.60); RDW 13.2 % (11.9-15.9); WHITE BLOOD COUNT 14.6 K/mm3 (4.0-10.0)
[2022-03-08 09:31] LABS: INR 1.15 (0.83-1.09); PROTHROMBIN TIME (PATIENT) 13.3 SEC (9.7-13.0)
[2022-03-08 10:11] LABS: ALBUMIN 2.7 g/dl (3.4-5.0)
[2022-03-08 10:12] LABS: TOT PROT 5.6 g/dl (6.4-8.2)
[2022-03-08 10:13] LABS: BLOOD UREA NITROGEN 23.6 mg/dL (7-18); CALCIUM 8.3 mg/dL (8.5-10.1)
[2022-03-08 10:14] LABS: BILIRUBIN,TOTAL 0.9 mg/dL (0.2-1)
[2022-03-08 10:22] LABS: CREATININE 1.1 mg/dL (0.55-1.3)
[2022-03-08] MEDS: ALLOPURINOL 100 MG TABLET (FP) PO SCH (10:53)
[2022-03-08] MEDS: TIMOLOL 0.5% OPHTHALMIC SOL 5 ML BOTTLE OS SCH ×2 (10:55→21:32)
[2022-03-08] MEDS: PANTOPRAZOLE SODIUM 40 MG VIAL IVPUSH SCH (10:55)
[2022-03-08] MEDS: DORZOLAMIDE 2% HCL OPHTHALMIC SOLUTION 10 ML BOTTLE OS SCH ×2 (10:56→21:31)
[2022-03-08] MEDS ORDERED: ACETAMINOPHEN 1000 MG/100 ML BAG IVPB PRN (14:59)
[2022-03-08] MEDS: ATORVASTATIN CA 10 MG TABLET (FP) PO SCH (21:25)
[2022-03-08] MEDS: DOXAZOSIN MESYLATE 4 MG TABLET PO SCH (21:25)
[2022-03-08] MEDS: ONDANSETRON 4 MG/2 ML VIAL IVPUSH PRN (22:10)
[2022-03-09] MEDS ORDERED: DEXTROSE 5%-WATER - 50 ML IVPB ONE ×3 (01:07→19:57)
[2022-03-09] MEDS ORDERED: PIPERACILLIN/TAZOBACTAM 3.375 GM VIAL IVPB ONE ×3 (01:07→19:57)
[2022-03-09] MEDS: PIPERACILLIN/TAZOB 3.375 GM 3.375 GM in DEXTROSE 5%-WATER - 50 ML IVPB SCH ×3 (01:32→20:07)
[2022-03-09] MEDS: DEXTROSE 5%-0.45% SALINE 1,000 ML IV SCH ×2 (04:40→20:15)
[2022-03-09 09:46] LABS: BASO % 0.2 % (0-2.0); EOS % 0.9 % (0-4.5); HEMOGLOBIN 11.4 GM/dL (11.7-16.9); LYMPH % 10.4 % (8-40); MCHC 34.5 g/dl (32.0-35.9); MEAN CELL VOLUME 92.9 fl (80-96); MEAN PLT VOLUME 9.8 fl (7.5-11.1); MONO % 10.3 % (3.8-10.2); NEUT % 78.2 % (42.8-82.8); PLATELET COUNT 195 10^3/uL (134-434); RBC 3.55 M/mm3 (4.00-5.60); WHITE BLOOD COUNT 10.9 K/mm3 (4.0-10.0)
[2022-03-09 10:12] LABS: BLOOD UREA NITROGEN 20.8 mg/dL (7-18); CALCIUM 8.5 mg/dL (8.5-10.1)
[2022-03-09] MEDS: DORZOLAMIDE 2% HCL OPHTHALMIC SOLUTION 10 ML BOTTLE OS SCH ×2 (10:31→21:44)
[2022-03-09] MEDS: PANTOPRAZOLE SODIUM 40 MG VIAL IVPUSH SCH (10:31)
[2022-03-09] MEDS: TIMOLOL 0.5% OPHTHALMIC SOL 5 ML BOTTLE OS SCH ×2 (10:32→21:45)
[2022-03-09] MEDS: ALLOPURINOL 100 MG TABLET (FP) PO SCH (10:37)
[2022-03-09] MEDS ORDERED: FENTANYL CITRATE/PF 50 MCG/ML VIAL ONE ×6 (16:09→18:32)
[2022-03-09] MEDS ORDERED: PROPOFOL 20 ML ONE (16:11)
[2022-03-09] MEDS ORDERED: SUCCINYLCHOLINE CHLORIDE 200 MG/10 ML SYRINGE ONE (16:11)
[2022-03-09] MEDS ORDERED: ROCURONIUM BROMIDE 50 MG/5 ML SYRINGE ONE ×2 (16:12→16:14)
[2022-03-09] MEDS ORDERED: DEXAMETHASONE SOD PHOSPHATE 4 MG/1 ML VIAL ONE (16:23)
[2022-03-09] MEDS ORDERED: ONDANSETRON 4 MG/2 ML VIAL ONE (16:23)
[2022-03-09] MEDS ORDERED: NEOSTIGMINE METHYLSULFATE 0.5 MG/1 ML - 10 ML MDV ONE (17:22)
[2022-03-09] MEDS ORDERED: GLYCOPYRROLATE 0.2 MG/1 ML VIAL ONE (17:22)
[2022-03-09] MEDS ORDERED: ONDANSETRON 4 MG/2 ML VIAL IVPUSH PRN ×2 (17:55→18:59)
[2022-03-09] MEDS ORDERED: ACETAMINOPHEN 1000 MG/100 ML BAG IVPB PRN (17:55)
[2022-03-09] MEDS: DOXAZOSIN MESYLATE 4 MG TABLET PO SCH (21:43)
[2022-03-09] MEDS: ATORVASTATIN CA 10 MG TABLET (FP) PO SCH (21:43)
[2022-03-10] MEDS ORDERED: PIPERACILLIN/TAZOBACTAM 3.375 GM VIAL IVPB ONE ×3 (02:34→17:10)
[2022-03-10] MEDS ORDERED: DEXTROSE 5%-WATER - 50 ML IVPB ONE ×3 (02:35→17:10)
[2022-03-10] MEDS: PIPERACILLIN/TAZOB 3.375 GM 3.375 GM in DEXTROSE 5%-WATER - 50 ML IVPB SCH ×3 (02:39→17:15)
[2022-03-10] MEDS: DEXTROSE 5%-0.45% SALINE 1,000 ML IV SCH ×3 (05:06→19:15)
[2022-03-10] MEDS: ALLOPURINOL 100 MG TABLET (FP) PO SCH (10:49)
[2022-03-10] MEDS: TAMSULOSIN HCL 0.4 MG CAP PO SCH (10:49)
[2022-03-10] MEDS: PANTOPRAZOLE SODIUM 40 MG VIAL IVPUSH SCH (10:50)
[2022-03-10] MEDS: DORZOLAMIDE 2% HCL OPHTHALMIC SOLUTION 10 ML BOTTLE OS SCH ×2 (10:51→21:32)
[2022-03-10] MEDS: TIMOLOL 0.5% OPHTHALMIC SOL 5 ML BOTTLE OS SCH ×2 (10:52→21:34)
[2022-03-10 12:59] LABS: BASO % 0.2 % (0-2.0); EOS % 2.2 % (0-4.5); HEMATOCRIT 28.9 % (35.4-49); HEMOGLOBIN 9.9 GM/dL (11.7-16.9); LYMPH % 15.4 % (8-40); MCH 31.8 pg (25.7-33.7); MCHC 34.1 g/dl (32.0-35.9); MEAN CELL VOLUME 93.2 fl (80-96); MEAN PLT VOLUME 9.4 fl (7.5-11.1); MONO % 11.3 % (3.8-10.2); NEUT % 70.9 % (42.8-82.8); PLATELET COUNT 162 10^3/uL (134-434); RDW 13.2 % (11.9-15.9); WHITE BLOOD COUNT 8.4 K/mm3 (4.0-10.0)
[2022-03-10 13:21] LABS: CALCIUM 8.1 mg/dL (8.5-10.1)
[2022-03-10 13:22] LABS: ALBUMIN 2.4 g/dl (3.4-5.0); BLOOD UREA NITROGEN 19.8 mg/dL (7-18)
[2022-03-10 13:25] LABS: CREATININE 1.1 mg/dL (0.55-1.3)
[2022-03-10 13:27] LABS: BILIRUBIN,TOTAL 0.7 mg/dL (0.2-1); TOT PROT 5.2 g/dl (6.4-8.2)
[2022-03-10] MEDS: ATORVASTATIN CA 10 MG TABLET (FP) PO SCH (21:35)
[2022-03-10] MEDS: DOXAZOSIN MESYLATE 4 MG TABLET PO SCH (21:36)
[2022-03-11] MEDS ORDERED: DEXTROSE 5%-WATER - 50 ML IVPB ONE ×3 (00:51→18:40)
[2022-03-11] MEDS ORDERED: PIPERACILLIN/TAZOBACTAM 3.375 GM VIAL IVPB ONE ×3 (00:51→18:40)
[2022-03-11] MEDS: DEXTROSE 5%-0.45% SALINE 1,000 ML IV SCH ×3 (02:05→22:01)
[2022-03-11] MEDS: PIPERACILLIN/TAZOB 3.375 GM 3.375 GM in DEXTROSE 5%-WATER - 50 ML IVPB SCH ×3 (02:05→19:05)
[2022-03-11] MEDS: TAMSULOSIN HCL 0.4 MG CAP PO SCH (08:20)
[2022-03-11 09:24] LABS: BASO % 0.2 % (0-2.0); EOS % 5.5 % (0-4.5); HEMATOCRIT 27.8 % (35.4-49); HEMOGLOBIN 9.4 GM/dL (11.7-16.9); LYMPH % 11.2 % (8-40); MCH 31.6 pg (25.7-33.7); MCHC 33.8 g/dl (32.0-35.9); MEAN CELL VOLUME 93.5 fl (80-96); MEAN PLT VOLUME 10.1 fl (7.5-11.1); MONO % 11.5 % (3.8-10.2); NEUT % 71.6 % (42.8-82.8); PLATELET COUNT 149 10^3/uL (134-434); RBC 2.97 M/mm3 (4.00-5.60); WHITE BLOOD COUNT 6.9 K/mm3 (4.0-10.0)
[2022-03-11] MEDS: TIMOLOL 0.5% OPHTHALMIC SOL 5 ML BOTTLE OS SCH ×2 (09:44→22:20)
[2022-03-11] MEDS: DORZOLAMIDE 2% HCL OPHTHALMIC SOLUTION 10 ML BOTTLE OS SCH ×2 (09:44→22:20)
[2022-03-11] MEDS: ALLOPURINOL 100 MG TABLET (FP) PO SCH (09:44)
[2022-03-11] MEDS: PANTOPRAZOLE SODIUM 40 MG VIAL IVPUSH SCH (09:44)
[2022-03-11 10:11] LABS: ALBUMIN 2.3 g/dl (3.4-5.0); BLOOD UREA NITROGEN 17.7 mg/dL (7-18); CALCIUM 7.7 mg/dL (8.5-10.1)
[2022-03-11 10:14] LABS: CREATININE 1.1 mg/dL (0.55-1.3)
[2022-03-11 10:16] LABS: BILIRUBIN,TOTAL 1.4 mg/dL (0.2-1); TOT PROT 4.7 g/dl (6.4-8.2)
[2022-03-11] MEDS: KCL 10 MEQ IVPB 10 MEQ/100 ML INFUS.BAG IVPB SCH ×2 (20:05→22:01)
[2022-03-11] MEDS: DOXAZOSIN MESYLATE 4 MG TABLET PO SCH (22:00)
[2022-03-11] MEDS: ATORVASTATIN CA 10 MG TABLET (FP) PO SCH (22:00)
[2022-03-12] MEDS ORDERED: PIPERACILLIN/TAZOBACTAM 3.375 GM VIAL IVPB ONE ×2 (01:28→09:26)
[2022-03-12] MEDS ORDERED: DEXTROSE 5%-WATER - 50 ML IVPB ONE ×2 (01:28→09:27)
[2022-03-12] MEDS: PIPERACILLIN/TAZOB 3.375 GM 3.375 GM in DEXTROSE 5%-WATER - 50 ML IVPB SCH ×3 (02:15→18:19)
[2022-03-12 07:14] VITALS: PULSE 64
[2022-03-12] MEDS: TAMSULOSIN HCL 0.4 MG CAP PO SCH (09:09)
[2022-03-12] MEDS: PANTOPRAZOLE SODIUM 40 MG VIAL IVPUSH SCH (09:31)
[2022-03-12] MEDS: ALLOPURINOL 100 MG TABLET (FP) PO SCH (09:32)
[2022-03-12] MEDS: DORZOLAMIDE 2% HCL OPHTHALMIC SOLUTION 10 ML BOTTLE OS SCH (09:33)
[2022-03-12] MEDS: TIMOLOL 0.5% OPHTHALMIC SOL 5 ML BOTTLE OS SCH (09:33)
[2022-03-12] MEDS ORDERED: NEBIVOLOL 10 MG TABLET (FP) PO SCH (10:00)
[2022-03-12 10:27] LABS: BLOOD UREA NITROGEN 15.8 mg/dL (7-18); CALCIUM 7.8 mg/dL (8.5-10.1)
[2022-03-12] MEDS: DEXTROSE 5%-0.45% SALINE 1,000 ML IV SCH (11:02)
[2022-03-12 13:15] VITALS: BP 135/78; TEMP 98.6
== END 2022-03-12 18:17 | disposition home health service (06) | DRG 336 ==
LOC: JER 03:35 → JERBED 08:22 → J5S 11:56 → OBSVTOIN 14:49 → J5S 03-11 03:50
PROVIDERS: ADMIT Family Medicine; ATTEND Family Medicine
PROC: 0DN84ZZ Release Small Intestine, Percutaneous Endoscopic Approach (ICD-10-PCS; principal; 2022-03-09 14:00)
PROC: 0WQF4ZZ Repair Abdominal Wall, Percutaneous Endoscopic Approach (ICD-10-PCS; 2022-03-09 14:00)
DX: K56.50 Intestinal adhesions [bands], unspecified as to partial versus complete obstruction (principal); R18.8 Other ascites; K92.2 Gastrointestinal hemorrhage, unspecified; I10 Essential (primary) hypertension; E78.5 Hyperlipidemia, unspecified; M54.50 Low back pain, unspecified; N40.0 Benign prostatic hyperplasia without lower urinary tract symptoms; H40.9 Unspecified glaucoma; N43.3 Hydrocele, unspecified; K45.8 Other specified abdominal hernia without obstruction or gangrene
CPT/HCPCS: 36415; 71045-TC-FY; 74019-TC-FY; 74021-TC-FY; 74175-TC; 74177-TC; 80048; 80053; 81003; 82150; 83605; 83615; 83690; 83735; 85025; 85610; 86140; 86850; 86900; 86901; 87086; 93005; 93010; 94010; 94760; 97116-GP; 97162-GP; 99285-25; C9803-CS; G0378; Q9967; U0003; U0005

== ENCOUNTER 2025-07-08 14:22 | Emergency (ER) | payer OTHER, MEDICARE ==
[2025-07-08 14:33] VITALS: RESP 18; TEMP 97.5; BMI 24.3
[2025-07-08 17:14] LABS: URINE APPEARANCE CLEAR; URINE BILIRUBIN NEGATIVE (NEGATIVE); URINE COLOR YELLOW; URINE GLUCOSE (UA) 1+ (NEGATIVE); URINE KETONE NEGATIVE (NEGATIVE); URINE LEUK ESTERASE NEGATIVE (NEGATIVE); URINE NITRITE NEGATIVE (NEGATIVE); URINE PROTEIN NEGATIVE (NEGATIVE); URINE UROBILINOGEN 0.2 mg/dL (0.2-1.0)
[2025-07-08 19:53] VITALS: BP 145/80; PULSE 65
== END 2025-07-08 19:33 | disposition home or self-care (01) ==
LOC: JER 14:22
DX: R10.30 Lower abdominal pain, unspecified (principal); K62.89 Other specified diseases of anus and rectum
CPT/HCPCS: 74021-TC-FY; 81003; 99284-25